=== PATIENT | female | born 1990 | race Caucasian/White ===

== ENCOUNTER 2018-05-14 19:30 | Emergency (ER) | payer OTHER ==
[~2018-05-14] VITALS: Ht 154.9 cm; Wt 54.0 kg
[2018-05-14 19:35] VITALS: Ht 154.9 cm; Wt 54.0 kg
[2018-05-14 22:37] VITALS: BP 115/58
== END 2018-05-14 22:37 | disposition home or self-care (01) ==
LOC: ED 19:30
DX: S81.811A Laceration without foreign body, right lower leg, initial encounter (principal); S80.812A Abrasion, left lower leg, initial encounter; W55.41XA Bitten by pig, initial encounter; Y93.89 Activity, other specified; Y92.89 Other specified places as the place of occurrence of the external cause; Y99.8 Other external cause status
CPT/HCPCS: J2001